=== PATIENT | female | born 2000 | race Caucasian/White ===

== ENCOUNTER → 2025-03-16 11:12 | Outpatient (CLI) | payer OTHER, SELFPAY ==
[2025-03-16 12:22] LABS: Influenza A - CEPHEID Flu A NEGATIVE (NEGATIVE); Influenza B - CEPHEID Flu B NEGATIVE (NEGATIVE)
[2025-03-16 12:28] LABS: COVID-19 CEPHEID 4-PLEX PCR Negative (Negative)
== END ==
PROVIDERS: Visit Provider Chiropractor
DX: R05.1 Acute cough (principal); J02.9 Acute pharyngitis, unspecified
CPT/HCPCS: 87070; 87637